=== PATIENT | female | born 1995 | race Caucasian/White ===

== ENCOUNTER → 2021-02-19 14:36 | Outpatient (BNVA) | payer SELFPAY | PROVIDERS: Family Provider Family Medicine; PCP Family Medicine; Visit Provider Nurse Practitioner Family | DX: R21 Rash and other nonspecific skin eruption (principal) | CPT/HCPCS: 85007; 85027; 85651 ==

== ENCOUNTER → 2021-02-27 13:23 | Outpatient (BNVA) | payer SELFPAY | PROVIDERS: Family Provider Family Medicine; PCP Family Medicine; Visit Provider Nurse Practitioner Family | DX: R70.0 Elevated erythrocyte sedimentation rate (principal); M25.50 Pain in unspecified joint; R21 Rash and other nonspecific skin eruption | CPT/HCPCS: 85651; 86038; 86431 ==

== ENCOUNTER → 2021-07-16 09:53 | Outpatient (BNVA) | payer MEDICAID, SELFPAY | PROVIDERS: Family Provider Family Medicine; PCP Family Medicine; Visit Provider Internal Medicine Rheumatology | DX: R76.8 Other specified abnormal immunological findings in serum (principal); M19.90 Unspecified osteoarthritis, unspecified site; R21 Rash and other nonspecific skin eruption; Z79.899 Other long term (current) drug therapy | CPT/HCPCS: 99204 ==

== ENCOUNTER 2021-07-16 11:25 | Outpatient (CLI) | payer MEDICAID, SELFPAY ==
[2021-07-16 11:55] LABS: Basophils % 0.5 %; Eosinophils # 0.1 10^3/uL (0.0-0.8); Eosinophils % 0.8 %; Hematocrit 40.6 % (37.0-47.0); Hemoglobin 13.2 g/dL (11.5-15.3); Lymphocytes # 2.7 10^3/uL (0.8-4.8); Lymphocytes % 34.2 %; Mean Corpuscular HGB Conc 32.5 g/dL (30.0-36.0); Mean Corpuscular Hemoglobin 29.7 pg (28.0-34.0); Mean Corpuscular Volume 91.4 fl (81-99); Mean Platelet Volume 9.7 fL (7.4-10.4); Monocytes # 0.8 10^3/uL (0.2-0.9); Monocytes % 9.8 %; Neutrophils # 4.36 10^3/uL (1.8-7.7); Neutrophils % 54.4 %; Nucleated Red Blood Cells % 0 %; Platelet Count 383 10^3/cmm (130-400); Red Blood Count 4.44 10^6/uL (4.1-5.3); Red Cell Distribution Width 12.5 % (12.1-15.1)
[2021-07-16 12:10] LABS: Erythrocyte Sedimentation Rate 11 mm/hr (0-15)
[2021-07-16 12:37] LABS: Alanine Aminotransferase 15 U/L (0-33); Albumin Level 4.8 g/dL (3.5-5.2); Alkaline Phosphatase 84 IU/L (35-105); Aspartate Amino Transferase 16 U/L (0-32); C Reactive Protein 4.6 mg/L (0.0-4.9); Globulin 3.2 g/dL (1.3-4.6); Glomerular Filtration Rate 122.8 mL/min (90-130); Total Bilirubin 0.3 mg/dL (0.15-1.2)
[2021-07-16 12:38] LABS: 25 Hydroxy Vitamin D 17 ng/mL (30-100); Thyroid Stimulating Hormone 0.96 uIU/mL (0.27-4.20)
[2021-07-16 12:59] LABS: Free T4 Free Thyroxine 1.07 ng/dL (0.82-1.77)
[2021-07-17 13:03] LABS: COMPLEMENT COMPONENT C3C 185 mg/dL (83-193); COMPLEMENT COMPONENT C4C 29 mg/dL (15-57)
[2021-07-17 13:37] LABS: Cyclic Citrullinated Peptide <16 UNITS
[2021-07-17 14:32] LABS: COMPLEMENT, TOTAL (CH50) >60 U/mL (31-60)
[2021-07-17 15:32] LABS: Thyroglobulin AB <1 IU/mL (< or = 1)
[2021-07-18 14:22] LABS: CENTROMERE B ANTIBODY <1.0 NEG AI (<1.0 NEG); JO-1 ANTIBODY <1.0 NEG AI (<1.0 NEG); RNP ANTIBODY <1.0 NEG AI (<1.0 NEG); SCL-70 ANTIBODY <1.0 NEG AI (<1.0 NEG); SJOGREN'S ANTIBODY (SS-A) <1.0 NEG AI (<1.0 NEG); SM ANTIBODY <1.0 NEG AI (<1.0 NEG); SS-B <1.0 NEG AI (<1.0 NEG)
[2021-07-19 09:41] LABS: THYROID PEROXIDASE ANTIBODIES 1 IU/mL (<9)
[2021-07-19 17:38] LABS: ANA SCREEN, IFA POSITIVE (NEGATIVE)
[2021-07-19 17:42] LABS: ANA PATTERN Nuclear, Speckled; ANA TITER 1:40 titer
[2021-07-20 15:08] LABS: DNA AB (DS) CRITHIDIA,IFA NEGATIVE (NEGATIVE)
== END 2021-07-16 11:26 | disposition home or self-care (01) ==
LOC: LAB 11:31
PROVIDERS: PCP Family Medicine; Visit Provider Internal Medicine Rheumatology
DX: M19.90 Unspecified osteoarthritis, unspecified site (principal); R76.8 Other specified abnormal immunological findings in serum; Z79.899 Other long term (current) drug therapy
CPT/HCPCS: 36415; 80076; 82306; 82565; 84439; 84443; 85025; 85651; 86140; 86160; 86162; 86200; 86235; 86255; 86376; 86431; 86800